=== PATIENT | male | born 1935 | race Caucasian/White ===

== ENCOUNTER 2021-08-28 13:27 | Inpatient (IN) | payer MEDICARE ==
[~2021-08-28 13:27] MED LIST: Iopamidol-370 76% 500 ML 1 ML ONE
[2021-08-28] MEDS ORDERED: Norepinephrine 8 MG/0.9% NS 250 ML ONE (13:47)
[2021-08-28 14:03] LABS: Actual Bicarbonate (HCO3a) 21.4 mEq/L (22-28); Analyzer IN Cardio ER; Base Excess (BEa) -1.8 mEq/L (-2.0 to +3.0); CO2 Tension 31.7 mmHg (35.0-45.0); Calcium, Ionized (arterial) 1.16 mmol/L (1.12-1.30); Carboxyhemoglobin (COHb) 0.5 gm% (0.0-3.0); Hemoglobin (Hb) 13.1 g/dL (14.0-18.0); Potassium - ABG Lab 3.37 mmol/L (3.70-5.30); pH, Arterial 7.45 (7.35-7.45)
[2021-08-28 14:10] LABS: Hemoglobin 13.2 g/dL (14.0-18.0); Mean Corpuscular HGB CONC 32.1 g/dL (32.0-36.0); Mean Corpuscular Volume 87.2 fL (78.0-98.0); Mean Platelet Volume 8.8 fL (7.4-10.4); Platelet Count 360 thou/uL (130-400); RBC Distribution Width 14.1 % (11.5-14.5); Red Blood Cell (RBC) Count 4.71 mill/uL (4.70-6.10); White Blood Cell (WBC) Count 45.7 thou/uL (4.8-10.8)
[2021-08-28] MEDS ORDERED: Fentanyl 100 MCG/2 ML VIAL SLOW IVP SCH (14:15)
[2021-08-28] MEDS ORDERED: Fentanyl CADD 100 ML IV SCH ×2 (14:15→18:15)
[2021-08-28 14:22] LABS: Band 15 % (5-11); Lymphocytes 4 % (21-51); MDiff Complete? YES; Monocytes 6 % (0-10); Neutrophil 75 % (42-75); Platelet Morphology Comment Appears Adequate; Polychromasia SLIGHT = 2-3 cells (100X) (0-2/hpf)
[2021-08-28 14:28] LABS: Albumin 2.8 g/dL (3.5-5.0); Anion Gap 19 mmol/L (10-20); BUN (Urea Nitrogen) 21 mg/dL (8.9-20.6); Bilirubin, Total 1.2 mg/dL (0.2-1.2); Calc. Creatinine Clearance 0 mL/min (70-130); Calcium 9.3 mg/dL (7.8-10.44); Carbon Dioxide 24 mmol/L (22-29); Chloride 104 mmol/L (98-107); Potassium 3.9 mmol/L (3.5-5.1); Protein, Total 6.6 g/dL (6.0-8.3); Sodium 143 mmol/L (136-145)
[2021-08-28 14:29] LABS: ALT (SGPT) 16 U/L (8-55); AST (SGOT) 18 U/L (5-34); Alkaline Phosphatase 56 U/L (40-110); CK (CPK) 16 U/L (30-200); Globulin 3.8 g/dL (2.4-3.5); Lipase 19 U/L (8-78); Magnesium 1.8 mg/dL (1.6-2.6)
[2021-08-28 14:33] LABS: Glucose 180 mg/dL (70-105)
[2021-08-28 14:40] LABS: Bacteria/HPF 4+ HPF (None Seen); Bilirubin Negative (Negative); Blood, Urine 2+ (Negative); Clarity Extra Turbid (Clear); Glucose, Urine (Dipstick) Normal (Negative); Ketone, Urine Negative (Negative); Leukocyte 500 Leu/uL (Negative); Nitrite Negative (Negative); Protein, Urine (Dipstick) 70 mg/dL (Neg-Trace); RBC/HPF 21-50 HPF (0-3); Specific Gravity, Urine 1.003 (1.002-1.036); Squamous Epithelial None Seen HPF (0-3); Urobilinogen Normal mg/dL (Less than 2); WBC/HPF Greater than 50 HPF (0-3); pH, Urine 7.5 (5.0-9.0)
[2021-08-28] MEDS ORDERED: Sodium Chloride 0.9% 100 ML ONE (14:52)
[2021-08-28] MEDS ORDERED: Cefepime 2 GM VIAL ONE (14:52)
[2021-08-28 14:56] LABS: CKMB 1.6 ng/mL (0-6.6)
[2021-08-28 15:17] LABS: SARS-CoV-2 NAA Rapid Test Not Detected (NotDetected)
[2021-08-28] MEDS ORDERED: Piperacillin/Tazobactam 4.5 GM in Sodium Chloride 0.9% 100 ML IVPB SCH (15:30)
[2021-08-28] MEDS ORDERED: Vancomycin 1 GM in Premix Bag 1 BAG IVPB SCH (15:30)
[2021-08-28] MEDS ORDERED: Dexamethasone 10 MG/ML VIAL ONE (15:59)
[2021-08-28] MEDS ORDERED: ADMIXTURE FEE IV SCH (16:00)
[2021-08-28] MEDS ORDERED: HUMAN PROTHROMBIN COMPLX IV SCH (16:00)
[2021-08-28] MEDS ORDERED: Norepinephrine 8 MG/0.9% NS 250 ML IVPB PRN (16:52)
[2021-08-28] MEDS ORDERED: Ventilator Sedation Protocol 1 EACH FS SCH (17:00)
[2021-08-28 17:17] LABS: Lactic Acid 5.9 mmol/L (0.5-2.2)
[2021-08-28 17:42] LABS: PTT 31.5 sec (22.9-36.1)
[2021-08-28 17:55] LABS: INR-International Normal Ratio 1.4; Prothrombin Time 17.2 sec (12.0-14.7)
[2021-08-28] MEDS ORDERED: Morphine 4 MG/ML VIAL SLOW IVP PRN (18:10)
[2021-08-28] MEDS ORDERED: Fentanyl BOLUS 250 ML IVPB PRN (18:15)
[2021-08-28] MEDS ORDERED: Propofol 1,000 MG/100 ML VIAL IV PRN (18:15)
[2021-08-28] MEDS ORDERED: Lorazepam 2 MG/ML VIAL SLOW IVP PRN (18:15)
[2021-08-28] MEDS ORDERED: DISCONTINUE PREVIOUS NARCOTIC PAIN MEDICATIONS AND BENZODIAZEPINES FS SCH (18:15)
[2021-08-28] MEDS ORDERED: Propofol BOLUS 1,000 MG/100 ML VIAL IV PRN (18:15)
[2021-08-28] MEDS: Morphine 4 MG/ML VIAL SLOW IVP PRN ×2 (21:31→23:58)
[2021-08-29] MEDS: Morphine 4 MG/ML VIAL SLOW IVP PRN ×4 (02:42→12:31)
[2021-08-29] MEDS ORDERED: FLU VACC QS2021-22(65YR UP)/PF 240 MCG/0.7 ML SYRINGE IM ONE (09:00)
[2021-08-29 12:16] LABS: O2 Tension (PaO2), arterial 55.1 mmHg (> 60.0)
[2021-08-29 12:17] LABS: ALV-art Gradient 190.475 mmHg (0-20); Puncture Site RRA
[2021-08-29] MEDS ORDERED: Acetaminophen 650 MG Suppository PR PRN (16:04)
[2021-08-30] MEDS ORDERED: Ondansetron ODT 4 MG TAB PO PRN (05:17)
[2021-08-30] MEDS ORDERED: Labetalol HCl 100 MG/20 ML VIAL SLOW IVP PRN (05:17)
[2021-08-30 07:51] VITALS: BP 152/73; TEMP 102
== END 2021-08-30 13:00 | disposition expired | DRG 64 ==
LOC: EDBD 13:27 → ERS 13:27 → CCU 18:06 → SURG B 08-29 02:06
PROVIDERS: ADMIT Internal Medicine; ATTEND Internal Medicine
PROC: 0BH17EZ Insertion of Endotracheal Airway into Trachea, Via Natural or Artificial Opening (ICD-10-PCS; principal; 2021-08-28)
PROC: 5A1935Z Respiratory Ventilation, Less than 24 Consecutive Hours (ICD-10-PCS; 2021-08-28)
PROC: 0D9670Z Drainage of Stomach with Drainage Device, Via Natural or Artificial Opening (ICD-10-PCS; 2021-08-28)
PROC: 3E033XZ Introduction of Vasopressor into Peripheral Vein, Percutaneous Approach (ICD-10-PCS; 2021-08-28)
PROC: 0T9B70Z Drainage of Bladder with Drainage Device, Via Natural or Artificial Opening (ICD-10-PCS; 2021-08-28)
PROC: 05H633Z Insertion of Infusion Device into Left Subclavian Vein, Percutaneous Approach (ICD-10-PCS; 2021-08-28)
DX: I60.9 Nontraumatic subarachnoid hemorrhage, unspecified (principal); A41.9 Sepsis, unspecified organism; G93.5 Compression of brain; J96.01 Acute respiratory failure with hypoxia; J69.0 Pneumonitis due to inhalation of food and vomit; R65.21 Severe sepsis with septic shock; I21.4 Non-ST elevation (NSTEMI) myocardial infarction; E87.2 Acidosis; G93.49 Other encephalopathy; T83.510A Infection and inflammatory reaction due to cystostomy catheter, initial encounter; Z66 Do not resuscitate; Z51.5 Encounter for palliative care; I62.00 Nontraumatic subdural hemorrhage, unspecified; N40.0 Benign prostatic hyperplasia without lower urinary tract symptoms; E11.22 Type 2 diabetes mellitus with diabetic chronic kidney disease; I12.9 Hypertensive chronic kidney disease with stage 1 through stage 4 chronic kidney disease, or unspecified chronic kidney disease; E78.5 Hyperlipidemia, unspecified; N18.30 Chronic kidney disease, stage 3 unspecified; I48.91 Unspecified atrial fibrillation; Z20.822 Contact with and (suspected) exposure to COVID-19; N31.9 Neuromuscular dysfunction of bladder, unspecified; Y84.6 Urinary catheterization as the cause of abnormal reaction of the patient, or of later complication, without mention of misadventure at the time of the procedure; Z86.73 Personal history of transient ischemic attack (TIA), and cerebral infarction without residual deficits; Z79.01 Long term (current) use of anticoagulants; Z78.1 Physical restraint status
CPT/HCPCS: 0240U; 36415; 36600; 70450; 71045; 71275; 74177; 80053; 81003; 81015; 82550; 82553; 82805; 83605; 83690; 83735; 83880; 84439; 84443; 84484; 85025; 85610; 85730; 86850; 86900; 86901; 87040; 87077; 87086; 93005; 94002; 94760; J0692; J1100; J2060; J2270; J2543; J3010; J3370; J3490; J7168; Q9967